=== PATIENT | male | born 1955 | race Caucasian/White ===

== ENCOUNTER 2020-04-12 10:30 | Outpatient (RCR) | payer MEDICARE, OTHER, SELFPAY ==
--- NOTE | 2020-01-23 12:00 | PT.OIE ---
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 (Acute) Hypercholesteremia (Acute) Hypothyroid (Acute) Tinnitus of both ears (Acute) Visit Care Team Role Provider Type John Fortune DO Primary Care Provider Non-Staff Specialty: Family Practice Address: [address] [place] [address], [id number] Email: Ramin Bhatt MD Attending Provider Physician Referring Provider Specialty: Ear, Nose, Throat Address: [address] [place] [address], [id number] Email: [email or web address] Physical Therapy Initial Evaluation PT-OP-A Visit Information Start: 01/24/20 08:44 Freq: Status: Active Protocol: Document 01/23/20 12:00 DLM (Rec: 01/24/20 08:52 DLM [email or web address]) Out-Patient Physical Therapy Visit Information Visit Information Visit Type Initial Evaluation Visit Start Time 12:00 Visit Stop Time 12:50 Total Visit Minutes 50 Visit Number 1 Evaluation Information Evaluation Date 01/24/20 PT-OP-B Current Condition Start: 01/24/20 08:44 Freq: Status: Active Protocol: Document 01/23/20 12:00 DLM (Rec: 01/24/20 09:19 DLM [email or web address]) Current Condition History of Current Condition Onset Date 5 years ago Current Complaints nausea, sense of motion sickness with positions and movements History of Current Condition Sudden development of nausea with specific motions such as looking up under a sink. He has been avoiding motions and positions that cause his symptoms. He sleeps on two pillows to keep head elevated. He has noticed a recent increase in his symptoms without known cause. If he does a very provoking activity his nausea can last the rest of the day. Less provoking motions will cause short term nausea. Other provoking positions/motions are; sleeping flat, head down when in quadruped, sudden head motions. Prior Treatments and Tests ENT assessment which was negative for BPPV, referred to physical therapy for habituation Treatment Goals Patient/Caregiver Goals He wants to be able to do rolls in his kayak, to remove limits to my activities Prior Functional Status Baseline Function- ADL's Independent Baseline Function- Mobility Independent Baseline Function- Gait Independent without device Baseline Function- Recreation/Hobbies active hiking and kayaking Baseline Function- Other hearing aides Current Functional Impairments (Reported) Functional Limitations- ADL's avoids looking under sink/bed, sleeps with head elevated Functional Limitations- Mobility/Gait Independent gait without assistive device, no change in his balance Functional Limitations- Recreation/ avoiding learning kayak rolls Hobbies due to his symptoms Functional Limitations- Other high frequency hearing loss, tinnitus bilateral ears, sometimes food sticks in esophagus, headaches when his symptoms are provoked Personal Factors Other Personal Factors That May Effect pt is very active, prior Therapy/Recovery injury to left achilles with ongoing soreness PT-OP-C Subjective Start: 01/24/20 08:44 Freq: Status: Active Protocol: Document 01/23/20 12:00 DLM (Rec: 01/26/20 12:44 DLM [email or web address]) Patient Questionnaires Dizziness Handicap Inventory DHI Score 24 DHI Functional Impairment 20 to 39% Impaired (Score 20- 39) PT-OP-D Balance Start: 01/24/20 08:44 Freq: Status: Active Protocol: Document 01/23/20 12:00 DLM (Rec: 01/26/20 12:47 DLM [email or web address]) Balance Tests CTSIB CTSIB Position 1 > 30 sec CTSIB Position 2 >30 sec CTSIB Position 3 >30 sec CTSIB Position 4 >30 sec CTSIB Position 5 >30 sec CTSIB Position 6 >30 sec Romberg Romberg independent with EO and EC Single Limb Standing Single Limb- Right > 10 sec Single Limb- Left >10 sec Tandem Tandem Standing independent > 30 sec PT-OP-H Neuro Start: 01/24/20 08:44 Freq: Status: Active Protocol: Document 01/23/20 12:00 DLM (Rec: 01/26/20 13:05 DLM [email or web address]) Sensation Evaluation Gross Sensation Gross Sensation Right LE Impaired Sensation Description Numbness Comments Summary Comments pt reports numbness in plantar right forefoot associated with neuropathy Coordination Evaluation Comments Coordination Comments UE and LE Coordination is WNL PT-OP-K Range of Motion Start: 01/24/20 08:44 Freq: Status: Active Protocol: Document 01/23/20 12:00 DLM (Rec: 01/26/20 12:48 DLM [email or web address]) Cervical Spine Range of Motion Cervical Spine Active Percentage Testing Position Sitting Flexion 95 Extension 50 Rotation Left 50 Rotation Right 75 Lateral Flexion Left 25 Lateral Flexion Right 25 ROM Limitations Soft Tissue Tightness PT-OP-M Strength Start: 01/24/20 08:44 Freq: Status: Active Protocol: Document 01/23/20 12:00 DLM (Rec: 01/26/20 12:50 DLM [email or web address]) Hip Strength Hip Manual Muscle Testing Right Flexion (L2) 5 Normal Extension (S1) 5 Normal Abduction 5 Normal Adduction 5 Normal Left Flexion (L2) 5 Normal Extension (S1) 5 Normal Abduction 5 Normal Adduction 5 Normal Knee Strength Knee Manual Muscle Testing Right Flexion (S2) 5 Normal Extension (L3) 5 Normal Left Flexion (S2) 5 Normal Extension (L3) 5 Normal Ankle/Foot Strength Ankle and Foot Manual Muscle Testing Right Dorsiflexion (L4) 5 Normal Plantarflexion (S1) 5 Normal Inversion 5 Normal Eversion (S1) 5 Normal Left Dorsiflexion (L4) 5 Normal Plantarflexion (S1) 4 Good Inversion 5 Normal Eversion (S1) 4 Good PT-OP-O Vestibular Start: 01/24/20 08:44 Freq: Status: Active Protocol: Document 01/23/20 12:00 DLM (Rec: 01/26/20 13:03 DLM [email or web address]) Vestibular Assessment Screening Tests Vestibular Artery Screen Negative Positional Testing Rolling Test Negative Left,Negative Right Sidelying Test Negative Left,Negative Right Supine to Sit Negative Sit to Supine Negative Vestibular Function Tests Fukuda Test negative Comments Vestibular Comments Nausea with movements but no nystagmus nor dizziness. Symptoms less severe with eyes open than eyes closed. Provoking Motions: 1)Sit to/from right sidelying, constant nausea in sidelying, resolves in sitting. 2)Sit to/from left sidelying, constant nausea in sidelying, resolves in sitting. 3)Rolling- mild nause bilaterally w/left worse than right. 4) Seated bend over and up- mild nausea that resolves with bent over and reoccurs with up motion. 5) Seated cervical extension causes nausea that resolves when in neutral 6) Seated cervical flexion causes nausea that is worse than extension PT-OP-Q Treatments Start: 01/24/20 08:44 Freq: Status: Active Protocol: Document 01/23/20 12:00 DLM (Rec: 01/24/20 09:00 DLM [email or web address]) Neuro Re-Education Treatment Other Activities 2 Details Rolling to each side in bed with pillow Reps/Duration 3 reps each side Comments habituation exercise 1 Details Cervical AROM seated Reps/Duration 3 reps each motion Comments habituation exercise Self-Care/Home Management Treatment Education Patient Education Home Exercise Program Other Education pt to do 2 above activities as HEP, he is to monitor his symptoms during activity, complete 2-3 times per day PT-OP-T Assessment and Plan Start: 01/24/20 08:44 Freq: Status: Active Protocol: Document 01/23/20 12:00 DLM (Rec: 01/26/20 13:17 DLM [email or web address]) Physical Therapy Assessment Rehab Potential Rehabilitation Potential Good Evaluation Complexity Number of Personal Factors/Comorbidities 1-2 Number of Body Systems Impaired 1-2 Clinical Presentation at Evaluation Evolving Impairments Impairments Activity Tolerance,ROM, Vestibular Other Impairments Nausea provoked by motions and positions Other Concerns Age Related Concerns hard of hearing Goals Two Impairment Nausea with head motions Short Term Goal (STG) Cervical soft tissue tightness with not limit normal head motions STG Duration 4 weeks Prison Goal (LTG) Resolve nause with normal head motions LTG Duration 6 weeks One Impairment Nausea with positional changes Short Term Goal (STG) Resolve nause with all bed mobility STG Duration 4 weeks Mink Slicer Goal (LTG) Resolve nause with all functional movements including looking under a sink LTG Duration 6 weeks Assessment Summary Assessment Dorene presents with nausea with positional changes and head motions. He has no dizziness nor nystagmus that is provoked. He reports his symptoms are getting worse over time and he is avoiding positions and motions to manage his symptoms. He is very active at baseline. During the clinical exam his symptoms suggest an uncompensated vestibular hypofunction that may be complicated by cervical soft tissue tightness. He appears to be a good candidate for vestibular rehab for habituation exercises and for PT to address his limited cervical ROM. Physical Therapy Plan Frequency and Duration Frequency of Treatment 2x/Week Duration of Treatment 6 weeks Plan of Care Start Date 01/23/20 Plan of Care End Date 03/05/20 Therapeutic Interventions Therapeutic Interventions Home Exercise Program,Manual Therapy,Self-Care/Home Management,Soft Tissue Mobilization,Therapeutic Activities,Therapeutic Exercises,Vestibular Rehabilitation Modalities Hot Packs Next Visit Focus/Plan Next Note Type Treatment Note Next Visit Plan continue to assess cervical limitations and its influence on his symptoms, advance habituation exercises as tolerated
--- NOTE | 2020-01-23 12:00 | PT.OPPOC ---
Physical, Occupational & Speech Therapy At [facility] Current Diagnoses Tinnitus, bilateral (01/25/20) Nausea (01/25/20) Dizziness and giddiness (01/25/20) Motion sickness, initial encounter (01/25/20) Visit Care Team Role Provider Type John Fortune DO Primary Care Provider Non-Staff Specialty: Family Practice Address: [address] [place], [address] Email: Ramin Bhatt MD Attending Provider Physician Referring Provider Specialty: Ear, Nose, Throat Address: [address] [place] [address], [id number] Email: [email or web address] Plan Of Care PT-OP-T Assessment and Plan Start: 01/24/20 08:44 Freq: Status: Active Protocol: Document 01/23/20 12:00 DLM (Rec: 01/26/20 13:17 DLM [email or web address]) Physical Therapy Assessment Rehab Potential Rehabilitation Potential Good Evaluation Complexity Number of Personal Factors/Comorbidities 1-2 Number of Body Systems Impaired 1-2 Clinical Presentation at Evaluation Evolving Impairments Impairments Activity Tolerance,ROM, Vestibular Other Impairments Nausea provoked by motions and positions Other Concerns Age Related Concerns hard of hearing Goals Two Impairment Nausea with head motions Short Term Goal (STG) Cervical soft tissue tightness with not limit normal head motions STG Duration 4 weeks Jail Goal (LTG) Resolve nause with normal head motions LTG Duration 6 weeks One Impairment Nausea with positional changes Short Term Goal (STG) Resolve nause with all bed mobility STG Duration 4 weeks Jail Goal (LTG) Resolve nause with all functional movements including looking under a sink LTG Duration 6 weeks Assessment Summary Assessment Dorene presents with nausea with positional changes and head motions. He has no dizziness nor nystagmus that is provoked. He reports his symptoms are getting worse over time and he is avoiding positions and motions to manage his symptoms. He is very active at baseline. During the clinical exam his symptoms suggest an uncompensated vestibular hypofunction that may be complicated by cervical soft tissue tightness. He appears to be a good candidate for vestibular rehab for habituation exercises and for PT to address his limited cervical ROM. Physical Therapy Plan Frequency and Duration Frequency of Treatment 2x/Week Duration of Treatment 6 weeks Plan of Care Start Date 01/23/20 Plan of Care End Date 03/05/20 Therapeutic Interventions Therapeutic Interventions Home Exercise Program,Manual Therapy,Self-Care/Home Management,Soft Tissue Mobilization,Therapeutic Activities,Therapeutic Exercises,Vestibular Rehabilitation Modalities Hot Packs Next Visit Focus/Plan Next Note Type Treatment Note Next Visit Plan continue to assess cervical limitations and its influence on his symptoms, advance habituation exercises as tolerated Plan of Care Dates Plan of Care Start Date 01/23/20 Plan of Care End Date 03/05/20 Electronically Signed by: Devorah Varghese, PT 01/26/20 [id number] Please Sign and Return: I have reviewed this Plan of Care and certify that the skilled therapy services above are required to meet the patient?s needs. Physician Signature Date Printed Name and Credentials
--- NOTE | 2020-01-25 15:15 | PT.OTN ---
Current Diagnoses Tinnitus, bilateral (01/25/20) Nausea (01/25/20) Dizziness and giddiness (01/25/20) Motion sickness, initial encounter (01/25/20) Physical Therapy Treatment Note PT-OP-A Visit Information Start: 01/24/20 08:44 Freq: Status: Active Protocol: Document 01/25/20 15:15 DLM (Rec: 01/26/20 13:26 DLM [email or web address]) Out-Patient Physical Therapy Visit Information Visit Information Visit Type Treatment Note Visit Start Time 15:15 Visit Stop Time 15:59 Total Visit Minutes 44 Visit Number 2/ Number of DIE CAST SUPERVISOR Visits 0 Evaluation Information Evaluation Date 01/23/20 Precautions Precautions left achilles soreness PT-OP-B Current Condition Start: 01/24/20 08:44 Freq: Status: Active Protocol: Document 01/23/20 12:00 DLM (Rec: 01/24/20 09:19 DLM [email or web address]) Current Condition History of Current Condition Onset Date 5 years ago Current Complaints nausea, sense of motion sickness with positions and movements History of Current Condition Sudden development of nausea with specific motions such as looking up under a sink. He has been avoiding motions and positions that cause his symptoms. He sleeps on two pillows to keep head elevated. He has noticed a recent increase in his symptoms without known cause. If he does a very provoking activity his nausea can last the rest of the day. Less provoking motions will cause short term nausea. Other provoking positions/motions are; sleeping flat, head down when in quadruped, sudden head motions. Prior Treatments and Tests ENT assessment which was negative for BPPV, referred to physical therapy for habituation Treatment Goals Patient/Caregiver Goals He wants to be able to do rolls in his kayak, to remove limits to my activities Prior Functional Status Baseline Function- ADL's Independent Baseline Function- Mobility Independent Baseline Function- Gait Independent without device Baseline Function- Recreation/Hobbies active hiking and kayaking Baseline Function- Other hearing aides Current Functional Impairments (Reported) Functional Limitations- ADL's avoids looking under sink/bed, sleeps with head elevated Functional Limitations- Mobility/Gait Independent gait without assistive device, no change in his balance Functional Limitations- Recreation/ avoiding learning kayak rolls Hobbies due to his symptoms Functional Limitations- Other high frequency hearing loss, tinnitus bilateral ears, sometimes food sticks in esophagus, headaches when his symptoms are provoked Personal Factors Other Personal Factors That May Effect pt is very active, prior Therapy/Recovery injury to left achilles with ongoing soreness PT-OP-C Subjective Start: 01/24/20 08:44 Freq: Status: Active Protocol: Document 01/25/20 15:15 DLM (Rec: 01/26/20 13:35 DLM [email or web address]) OP-PT Subjective Patient Comments Patient Comments He has been doing his exerices at home and feeling a little better. He tolerated the evaluation without all day nausea after. Patient Reported Progress Improving PT-OP-D Balance Start: 01/24/20 08:44 Freq: Status: Active Protocol: Document 01/23/20 12:00 DLM (Rec: 01/26/20 12:47 DLM [email or web address]) Balance Tests CTSIB CTSIB Position 1 > 30 sec CTSIB Position 2 >30 sec CTSIB Position 3 >30 sec CTSIB Position 4 >30 sec CTSIB Position 5 >30 sec CTSIB Position 6 >30 sec Romberg Romberg independent with EO and EC Single Limb Standing Single Limb- Right > 10 sec Single Limb- Left >10 sec Tandem Tandem Standing independent > 30 sec PT-OP-H Neuro Start: 01/24/20 08:44 Freq: Status: Active Protocol: Document 01/23/20 12:00 DLM (Rec: 01/26/20 13:05 DLM [email or web address]) Sensation Evaluation Gross Sensation Gross Sensation Right LE Impaired Sensation Description Numbness Comments Summary Comments pt reports numbness in plantar right forefoot associated with neuropathy Coordination Evaluation Comments Coordination Comments UE and LE Coordination is WNL PT-OP-K Range of Motion Start: 01/24/20 08:44 Freq: Status: Active Protocol: Document 01/23/20 12:00 DLM (Rec: 01/26/20 12:48 DLM [email or web address]) Cervical Spine Range of Motion Cervical Spine Active Percentage Testing Position Sitting Flexion 95 Extension 50 Rotation Left 50 Rotation Right 75 Lateral Flexion Left 25 Lateral Flexion Right 25 ROM Limitations Soft Tissue Tightness PT-OP-M Strength Start: 01/24/20 08:44 Freq: Status: Active Protocol: Document 01/23/20 12:00 DLM (Rec: 01/26/20 12:50 DLM [email or web address]) Hip Strength Hip Manual Muscle Testing Right Flexion (L2) 5 Normal Extension (S1) 5 Normal Abduction 5 Normal Adduction 5 Normal Left Flexion (L2) 5 Normal Extension (S1) 5 Normal Abduction 5 Normal Adduction 5 Normal Knee Strength Knee Manual Muscle Testing Right Flexion (S2) 5 Normal Extension (L3) 5 Normal Left Flexion (S2) 5 Normal Extension (L3) 5 Normal Ankle/Foot Strength Ankle and Foot Manual Muscle Testing Right Dorsiflexion (L4) 5 Normal Plantarflexion (S1) 5 Normal Inversion 5 Normal Eversion (S1) 5 Normal Left Dorsiflexion (L4) 5 Normal Plantarflexion (S1) 4 Good Inversion 5 Normal Eversion (S1) 4 Good PT-OP-O Vestibular Start: 01/24/20 08:44 Freq: Status: Active Protocol: Document 01/23/20 12:00 DLM (Rec: 01/26/20 13:03 DLM [email or web address]) Vestibular Assessment Screening Tests Vestibular Artery Screen Negative Positional Testing Rolling Test Negative Left,Negative Right Sidelying Test Negative Left,Negative Right Supine to Sit Negative Sit to Supine Negative Vestibular Function Tests Fukuda Test negative Comments Vestibular Comments Nausea with movements but no nystagmus nor dizziness. Symptoms less severe with eyes open than eyes closed. Provoking Motions: 1)Sit to/from right sidelying, constant nausea in sidelying, resolves in sitting. 2)Sit to/from left sidelying, constant nausea in sidelying, resolves in sitting. 3)Rolling- mild nause bilaterally w/left worse than right. 4) Seated bend over and up- mild nausea that resolves with bent over and reoccurs with up motion. 5) Seated cervical extension causes nausea that resolves when in neutral 6) Seated cervical flexion causes nausea that is worse than extension PT-OP-Q Treatments Start: 01/24/20 08:44 Freq: Status: Active Protocol: Document 01/25/20 15:15 DLM (Rec: 01/26/20 13:35 DLM [email or web address]) Neuro Re-Education Treatment Other Activities 5 Details standing narrow EDGARDO with head motions Reps/Duration 2 sets of 3 each direction Comments habituation, EO 4 Details Lying flat in supine Reps/Duration eyes open Comments started with one pillow and progressed to no pillow, incorporated suboccipital release to assist with neutral head position 3 Details Cervical Extension seated Reps/Duration 3 reps Comments habituation exercises, EO 2 Details Rolling to each side in bed with pillow Reps/Duration 3 reps each side Comments habituation exercise, EO 1 Details Cervical AROM seated Reps/Duration 3 reps each motion Comments habituation exercise, EO Self-Care/Home Management Treatment Education Patient Education Home Exercise Program Other Education reviewed HEP and added cervical extension seated to home exercises PT-OP-T Assessment and Plan Start: 01/24/20 08:44 Freq: Status: Active Protocol: Document 01/25/20 15:15 DLM (Rec: 01/26/20 13:35 DLM [email or web address]) Physical Therapy Assessment Goals Two Impairment Nausea with head motions Short Term Goal (STG) Cervical soft tissue tightness with not limit normal head motions STG Duration 4 weeks Veneer Stock Layer Goal (LTG) Resolve nause with normal head motions LTG Duration 6 weeks One Impairment Nausea with positional changes Short Term Goal (STG) Resolve nause with all bed mobility STG Duration 4 weeks Veneer Stock Layer Goal (LTG) Resolve nause with all functional movements including looking under a sink LTG Duration 6 weeks Progress Towards Goals Progress Towards Goals Progressing Toward Goals Assessment Summary Assessment He tolerated treatment well. Mild improvement in his symptoms compared to eval. Pt thinks his cervical stiffness may be related to him sleeping with head elevated avoiding the nause with lying flat. Physical Therapy Plan Frequency and Duration Frequency of Treatment 2x/Week Duration of Treatment 6 weeks Plan of Care Start Date 01/23/20 Plan of Care End Date 03/05/20 Therapeutic Interventions Therapeutic Interventions Home Exercise Program,Manual Therapy,Self-Care/Home Management,Soft Tissue Mobilization,Therapeutic Activities,Therapeutic Exercises,Vestibular Rehabilitation Modalities Hot Packs Next Visit Focus/Plan Next Note Type Treatment Note Next Visit Plan slow advance habituation exercises, continue to address cervical stiffness
--- NOTE | 2020-01-29 12:01 | PT.OTN ---
Current Diagnoses Tinnitus, bilateral (01/29/20) Nausea (01/29/20) Dizziness and giddiness (01/29/20) Motion sickness, initial encounter (01/29/20) Physical Therapy Treatment Note PT-OP-A Visit Information Start: 01/24/20 08:44 Freq: Status: Active Protocol: Document 01/29/20 11:15 DCW (Rec: 01/29/20 12:01 DCW [id number]) Out-Patient Physical Therapy Visit Information Visit Information Visit Type Treatment Note Visit Start Time 11:15 Visit Stop Time 12:00 Total Visit Minutes 45 Visit Number 3/10 Number of LOOM CHANGER Visits 0 Evaluation Information Evaluation Date 01/23/20 PT-OP-B Current Condition Start: 01/24/20 08:44 Freq: Status: Active Protocol: Document 01/23/20 12:00 DLM (Rec: 01/24/20 09:19 DLM [email or web address]) Current Condition History of Current Condition Onset Date 5 years ago Current Complaints nausea, sense of motion sickness with positions and movements History of Current Condition Sudden development of nausea with specific motions such as looking up under a sink. He has been avoiding motions and positions that cause his symptoms. He sleeps on two pillows to keep head elevated. He has noticed a recent increase in his symptoms without known cause. If he does a very provoking activity his nausea can last the rest of the day. Less provoking motions will cause short term nausea. Other provoking positions/motions are; sleeping flat, head down when in quadruped, sudden head motions. Prior Treatments and Tests ENT assessment which was negative for BPPV, referred to physical therapy for habituation Treatment Goals Patient/Caregiver Goals He wants to be able to do rolls in his kayak, to remove limits to my activities Prior Functional Status Baseline Function- ADL's Independent Baseline Function- Mobility Independent Baseline Function- Gait Independent without device Baseline Function- Recreation/Hobbies active hiking and kayaking Baseline Function- Other hearing aides Current Functional Impairments (Reported) Functional Limitations- ADL's avoids looking under sink/bed, sleeps with head elevated Functional Limitations- Mobility/Gait Independent gait without assistive device, no change in his balance Functional Limitations- Recreation/ avoiding learning kayak rolls Hobbies due to his symptoms Functional Limitations- Other high frequency hearing loss, tinnitus bilateral ears, sometimes food sticks in esophagus, headaches when his symptoms are provoked Personal Factors Other Personal Factors That May Effect pt is very active, prior Therapy/Recovery injury to left achilles with ongoing soreness PT-OP-C Subjective Start: 01/24/20 08:44 Freq: Status: Active Protocol: Document 01/29/20 11:15 DCW (Rec: 01/29/20 12:01 DCW [id number]) OP-PT Subjective Patient Comments Patient Comments I don't have a problem with 90% of activities, but if I get my head upside-down like I 'm looking under something, I just feel really nauseated. As I do these exercises at home, it does seem like my symptoms are diminishing. PT-OP-D Balance Start: 01/24/20 08:44 Freq: Status: Active Protocol: Document 01/23/20 12:00 DLM (Rec: 01/26/20 12:47 DLM [email or web address]) Balance Tests CTSIB CTSIB Position 1 > 30 sec CTSIB Position 2 >30 sec CTSIB Position 3 >30 sec CTSIB Position 4 >30 sec CTSIB Position 5 >30 sec CTSIB Position 6 >30 sec Romberg Romberg independent with EO and EC Single Limb Standing Single Limb- Right > 10 sec Single Limb- Left >10 sec Tandem Tandem Standing independent > 30 sec PT-OP-H Neuro Start: 01/24/20 08:44 Freq: Status: Active Protocol: Document 01/23/20 12:00 DLM (Rec: 01/26/20 13:05 DLM [email or web address]) Sensation Evaluation Gross Sensation Gross Sensation Right LE Impaired Sensation Description Numbness Comments Summary Comments pt reports numbness in plantar right forefoot associated with neuropathy Coordination Evaluation Comments Coordination Comments UE and LE Coordination is WNL PT-OP-K Range of Motion Start: 01/24/20 08:44 Freq: Status: Active Protocol: Document 01/23/20 12:00 DLM (Rec: 01/26/20 12:48 DLM [email or web address]) Cervical Spine Range of Motion Cervical Spine Active Percentage Testing Position Sitting Flexion 95 Extension 50 Rotation Left 50 Rotation Right 75 Lateral Flexion Left 25 Lateral Flexion Right 25 ROM Limitations Soft Tissue Tightness PT-OP-M Strength Start: 01/24/20 08:44 Freq: Status: Active Protocol: Document 01/23/20 12:00 DLM (Rec: 01/26/20 12:50 DLM [email or web address]) Hip Strength Hip Manual Muscle Testing Right Flexion (L2) 5 Normal Extension (S1) 5 Normal Abduction 5 Normal Adduction 5 Normal Left Flexion (L2) 5 Normal Extension (S1) 5 Normal Abduction 5 Normal Adduction 5 Normal Knee Strength Knee Manual Muscle Testing Right Flexion (S2) 5 Normal Extension (L3) 5 Normal Left Flexion (S2) 5 Normal Extension (L3) 5 Normal Ankle/Foot Strength Ankle and Foot Manual Muscle Testing Right Dorsiflexion (L4) 5 Normal Plantarflexion (S1) 5 Normal Inversion 5 Normal Eversion (S1) 5 Normal Left Dorsiflexion (L4) 5 Normal Plantarflexion (S1) 4 Good Inversion 5 Normal Eversion (S1) 4 Good PT-OP-O Vestibular Start: 01/24/20 08:44 Freq: Status: Active Protocol: Document 01/23/20 12:00 DLM (Rec: 01/26/20 13:03 DLM [email or web address]) Vestibular Assessment Screening Tests Vestibular Artery Screen Negative Positional Testing Rolling Test Negative Left,Negative Right Sidelying Test Negative Left,Negative Right Supine to Sit Negative Sit to Supine Negative Vestibular Function Tests Fukuda Test negative Comments Vestibular Comments Nausea with movements but no nystagmus nor dizziness. Symptoms less severe with eyes open than eyes closed. Provoking Motions: 1)Sit to/from right sidelying, constant nausea in sidelying, resolves in sitting. 2)Sit to/from left sidelying, constant nausea in sidelying, resolves in sitting. 3)Rolling- mild nause bilaterally w/left worse than right. 4) Seated bend over and up- mild nausea that resolves with bent over and reoccurs with up motion. 5) Seated cervical extension causes nausea that resolves when in neutral 6) Seated cervical flexion causes nausea that is worse than extension PT-OP-Q Treatments Start: 01/24/20 08:44 Freq: Status: Active Protocol: Document 01/29/20 11:15 DCW (Rec: 01/29/20 12:01 DCW [id number]) Manual Therapy Treatment Soft Tissue Mobilization 1 Body Location Cervical paraspinals Mobilization Type Strumming,Sustained Pressure Neuro Re-Education Treatment Vestibular Rehabilitation Corrective Saccades Details Eyes, then head to target Distance From Target Arms length Speed as tolerated Position seated X2 Viewing Details Head/target in opposite directions Distance From Target Arms length Speed as tolerated Position seated X1 Viewing Details Head turns with static target Distance From Target Arms length Speed as tolerated Position seated VOR Retraining Details Target and head move together Distance From Target Arms length Speed as tolerated Position seated Other Activities 7 Details Ambulation with head turns 6 Details 3-steps, bow, head turns PT-OP-T Assessment and Plan Start: 01/24/20 08:44 Freq: Status: Active Protocol: Document 01/29/20 11:15 DCW (Rec: 01/29/20 12:01 DCW [id number]) Physical Therapy Assessment Impairments Impairments Activity Tolerance,ROM, Vestibular Other Impairments Nausea provoked by motions and positions Goals Two Impairment Nausea with head motions Short Term Goal (STG) Cervical soft tissue tightness with not limit normal head motions STG Duration 4 weeks Spring Fitter Goal (LTG) Resolve nause with normal head motions LTG Duration 6 weeks One Impairment Nausea with positional changes Short Term Goal (STG) Resolve nause with all bed mobility STG Duration 4 weeks Spring Fitter Goal (LTG) Resolve nause with all functional movements including looking under a sink LTG Duration 6 weeks Assessment Summary Assessment Pt mildly symptomatic with VOR , X1, X2 exercises, but felt they were helpful. Overall seeing improvement with frequency and severity of symptoms since evaluation last week. Physical Therapy Plan Frequency and Duration Frequency of Treatment 2x/Week Duration of Treatment 6 weeks Plan of Care Start Date 01/23/20 Plan of Care End Date 03/05/20 Therapeutic Interventions Therapeutic Interventions Home Exercise Program,Manual Therapy,Self-Care/Home Management,Soft Tissue Mobilization,Therapeutic Activities,Therapeutic Exercises,Vestibular Rehabilitation Modalities Hot Packs Next Visit Focus/Plan Next Note Type Treatment Note Next Visit Plan slow advance habituation exercises, continue to address cervical stiffness
--- NOTE | 2020-02-12 10:31 | PT.OTN ---
Current Diagnoses Tinnitus, bilateral (02/12/20) Nausea (02/12/20) Dizziness and giddiness (02/12/20) Motion sickness, initial encounter (02/12/20) Physical Therapy Treatment Note PT-OP-A Visit Information Start: 01/24/20 08:44 Freq: Status: Active Protocol: Document 02/12/20 10:01 AMB (Rec: 02/12/20 10:10 AMB [id number]) Out-Patient Physical Therapy Visit Information Visit Information Visit Type Treatment Note Visit Start Time 09:05 Visit Stop Time 09:45 Total Visit Minutes 40 Visit Number 4/10 Number of SEAPORT PLANNING MANAGER Visits 0 PT-OP-B Current Condition Start: 01/24/20 08:44 Freq: Status: Active Protocol: Document 01/23/20 12:00 DLM (Rec: 01/24/20 09:19 DLM [email or web address]) Current Condition History of Current Condition Onset Date 5 years ago Current Complaints nausea, sense of motion sickness with positions and movements History of Current Condition Sudden development of nausea with specific motions such as looking up under a sink. He has been avoiding motions and positions that cause his symptoms. He sleeps on two pillows to keep head elevated. He has noticed a recent increase in his symptoms without known cause. If he does a very provoking activity his nausea can last the rest of the day. Less provoking motions will cause short term nausea. Other provoking positions/motions are; sleeping flat, head down when in quadruped, sudden head motions. Prior Treatments and Tests ENT assessment which was negative for BPPV, referred to physical therapy for habituation Treatment Goals Patient/Caregiver Goals He wants to be able to do rolls in his kayak, to remove limits to my activities Prior Functional Status Baseline Function- ADL's Independent Baseline Function- Mobility Independent Baseline Function- Gait Independent without device Baseline Function- Recreation/Hobbies active hiking and kayaking Baseline Function- Other hearing aides Current Functional Impairments (Reported) Functional Limitations- ADL's avoids looking under sink/bed, sleeps with head elevated Functional Limitations- Mobility/Gait Independent gait without assistive device, no change in his balance Functional Limitations- Recreation/ avoiding learning kayak rolls Hobbies due to his symptoms Functional Limitations- Other high frequency hearing loss, tinnitus bilateral ears, sometimes food sticks in esophagus, headaches when his symptoms are provoked Personal Factors Other Personal Factors That May Effect pt is very active, prior Therapy/Recovery injury to left achilles with ongoing soreness PT-OP-C Subjective Start: 01/24/20 08:44 Freq: Status: Active Protocol: Document 02/12/20 10:01 AMB (Rec: 02/12/20 10:10 AMB [id number]) OP-PT Subjective Patient Comments Patient Comments Exercises are getting easier, they would cause 3/10 nausea originally, but now about 1/10 nausea. Bending over and looking up would still cause a lot of nausea. PT-OP-D Balance Start: 01/24/20 08:44 Freq: Status: Active Protocol: Document 01/23/20 12:00 DLM (Rec: 01/26/20 12:47 DLM [email or web address]) Balance Tests CTSIB CTSIB Position 1 > 30 sec CTSIB Position 2 >30 sec CTSIB Position 3 >30 sec CTSIB Position 4 >30 sec CTSIB Position 5 >30 sec CTSIB Position 6 >30 sec Romberg Romberg independent with EO and EC Single Limb Standing Single Limb- Right > 10 sec Single Limb- Left >10 sec Tandem Tandem Standing independent > 30 sec PT-OP-H Neuro Start: 01/24/20 08:44 Freq: Status: Active Protocol: Document 01/23/20 12:00 DLM (Rec: 01/26/20 13:05 DLM [email or web address]) Sensation Evaluation Gross Sensation Gross Sensation Right LE Impaired Sensation Description Numbness Comments Summary Comments pt reports numbness in plantar right forefoot associated with neuropathy Coordination Evaluation Comments Coordination Comments UE and LE Coordination is WNL PT-OP-K Range of Motion Start: 01/24/20 08:44 Freq: Status: Active Protocol: Document 01/23/20 12:00 DLM (Rec: 01/26/20 12:48 DLM [email or web address]) Cervical Spine Range of Motion Cervical Spine Active Percentage Testing Position Sitting Flexion 95 Extension 50 Rotation Left 50 Rotation Right 75 Lateral Flexion Left 25 Lateral Flexion Right 25 ROM Limitations Soft Tissue Tightness PT-OP-M Strength Start: 01/24/20 08:44 Freq: Status: Active Protocol: Document 01/23/20 12:00 DLM (Rec: 01/26/20 12:50 DLM [email or web address]) Hip Strength Hip Manual Muscle Testing Right Flexion (L2) 5 Normal Extension (S1) 5 Normal Abduction 5 Normal Adduction 5 Normal Left Flexion (L2) 5 Normal Extension (S1) 5 Normal Abduction 5 Normal Adduction 5 Normal Knee Strength Knee Manual Muscle Testing Right Flexion (S2) 5 Normal Extension (L3) 5 Normal Left Flexion (S2) 5 Normal Extension (L3) 5 Normal Ankle/Foot Strength Ankle and Foot Manual Muscle Testing Right Dorsiflexion (L4) 5 Normal Plantarflexion (S1) 5 Normal Inversion 5 Normal Eversion (S1) 5 Normal Left Dorsiflexion (L4) 5 Normal Plantarflexion (S1) 4 Good Inversion 5 Normal Eversion (S1) 4 Good PT-OP-O Vestibular Start: 01/24/20 08:44 Freq: Status: Active Protocol: Document 01/23/20 12:00 DLM (Rec: 01/26/20 13:03 DLM [email or web address]) Vestibular Assessment Screening Tests Vestibular Artery Screen Negative Positional Testing Rolling Test Negative Left,Negative Right Sidelying Test Negative Left,Negative Right Supine to Sit Negative Sit to Supine Negative Vestibular Function Tests Fukuda Test negative Comments Vestibular Comments Nausea with movements but no nystagmus nor dizziness. Symptoms less severe with eyes open than eyes closed. Provoking Motions: 1)Sit to/from right sidelying, constant nausea in sidelying, resolves in sitting. 2)Sit to/from left sidelying, constant nausea in sidelying, resolves in sitting. 3)Rolling- mild nause bilaterally w/left worse than right. 4) Seated bend over and up- mild nausea that resolves with bent over and reoccurs with up motion. 5) Seated cervical extension causes nausea that resolves when in neutral 6) Seated cervical flexion causes nausea that is worse than extension PT-OP-Q Treatments Start: 01/24/20 08:44 Freq: Status: Active Protocol: Document 02/12/20 09:00 AMB (Rec: 02/12/20 10:31 AMB [email or web address]) Manual Therapy Treatment Soft Tissue Mobilization 1 Body Location Cervical paraspinals Mobilization Type Strumming,Sustained Pressure Manual Traction Cervical Body Position Hooklying Neuro Re-Education Treatment Other Activities 8 Details 3 step and SLS with HT Comments challenging for balance 7 Details Ambulation with head turns Comments added diagonal head turns 6 Details 3-steps, bow, head turns Comments added diagonal PT-OP-T Assessment and Plan Start: 01/24/20 08:44 Freq: Status: Active Protocol: Document 02/12/20 09:00 AMB (Rec: 02/12/20 10:31 AMB [email or web address]) Physical Therapy Assessment Assessment Summary Assessment Mino was more challenged when he took his natural long stride lengths with his exercises. Encouraged to modify step length/ speed of head turn so that he can be challenged by exercises but not fall. Pt asked if he should continue all of previously assigned HEP and told him to continue with those items that he continues to find challenging/reproduce his sx. Physical Therapy Plan Next Visit Focus/Plan Next Note Type Treatment Note Next Visit Plan slow advance habituation exercises, continue to address cervical stiffness
--- NOTE | 2020-02-14 12:00 | PT.OTN ---
Current Diagnoses Tinnitus, bilateral (02/14/20) Nausea (02/14/20) Dizziness and giddiness (02/14/20) Motion sickness, initial encounter (02/14/20) Physical Therapy Treatment Note PT-OP-A Visit Information Start: 01/24/20 08:44 Freq: Status: Active Protocol: Document 02/14/20 09:45 AMB (Rec: 02/14/20 10:57 AMB [id number]) Out-Patient Physical Therapy Visit Information Visit Information Visit Type Treatment Note Visit Start Time 09:00 Visit Stop Time 09:40 Total Visit Minutes 40 Visit Number 5/ Number of SOCIAL WORK FACULTY MEMBER Visits 0 PT-OP-B Current Condition Start: 01/24/20 08:44 Freq: Status: Active Protocol: Document 01/23/20 12:00 DLM (Rec: 01/24/20 09:19 DLM [email or web address]) Current Condition History of Current Condition Onset Date 5 years ago Current Complaints nausea, sense of motion sickness with positions and movements History of Current Condition Sudden development of nausea with specific motions such as looking up under a sink. He has been avoiding motions and positions that cause his symptoms. He sleeps on two pillows to keep head elevated. He has noticed a recent increase in his symptoms without known cause. If he does a very provoking activity his nausea can last the rest of the day. Less provoking motions will cause short term nausea. Other provoking positions/motions are; sleeping flat, head down when in quadruped, sudden head motions. Prior Treatments and Tests ENT assessment which was negative for BPPV, referred to physical therapy for habituation Treatment Goals Patient/Caregiver Goals He wants to be able to do rolls in his kayak, to remove limits to my activities Prior Functional Status Baseline Function- ADL's Independent Baseline Function- Mobility Independent Baseline Function- Gait Independent without device Baseline Function- Recreation/Hobbies active hiking and kayaking Baseline Function- Other hearing aides Current Functional Impairments (Reported) Functional Limitations- ADL's avoids looking under sink/bed, sleeps with head elevated Functional Limitations- Mobility/Gait Independent gait without assistive device, no change in his balance Functional Limitations- Recreation/ avoiding learning kayak rolls Hobbies due to his symptoms Functional Limitations- Other high frequency hearing loss, tinnitus bilateral ears, sometimes food sticks in esophagus, headaches when his symptoms are provoked Personal Factors Other Personal Factors That May Effect pt is very active, prior Therapy/Recovery injury to left achilles with ongoing soreness PT-OP-C Subjective Start: 01/24/20 08:44 Freq: Status: Active Protocol: Document 02/14/20 09:45 AMB (Rec: 02/14/20 10:57 AMB [id number]) OP-PT Subjective Patient Comments Patient Comments Feeling pretty good, 3/10 dizziness with exercises at home. PT-OP-D Balance Start: 01/24/20 08:44 Freq: Status: Active Protocol: Document 01/23/20 12:00 DLM (Rec: 01/26/20 12:47 DLM [email or web address]) Balance Tests CTSIB CTSIB Position 1 > 30 sec CTSIB Position 2 >30 sec CTSIB Position 3 >30 sec CTSIB Position 4 >30 sec CTSIB Position 5 >30 sec CTSIB Position 6 >30 sec Romberg Romberg independent with EO and EC Single Limb Standing Single Limb- Right > 10 sec Single Limb- Left >10 sec Tandem Tandem Standing independent > 30 sec PT-OP-H Neuro Start: 01/24/20 08:44 Freq: Status: Active Protocol: Document 01/23/20 12:00 DLM (Rec: 01/26/20 13:05 DLM [email or web address]) Sensation Evaluation Gross Sensation Gross Sensation Right LE Impaired Sensation Description Numbness Comments Summary Comments pt reports numbness in plantar right forefoot associated with neuropathy Coordination Evaluation Comments Coordination Comments UE and LE Coordination is WNL PT-OP-K Range of Motion Start: 01/24/20 08:44 Freq: Status: Active Protocol: Document 01/23/20 12:00 DLM (Rec: 01/26/20 12:48 DLM [email or web address]) Cervical Spine Range of Motion Cervical Spine Active Percentage Testing Position Sitting Flexion 95 Extension 50 Rotation Left 50 Rotation Right 75 Lateral Flexion Left 25 Lateral Flexion Right 25 ROM Limitations Soft Tissue Tightness PT-OP-M Strength Start: 01/24/20 08:44 Freq: Status: Active Protocol: Document 01/23/20 12:00 DLM (Rec: 01/26/20 12:50 DLM [email or web address]) Hip Strength Hip Manual Muscle Testing Right Flexion (L2) 5 Normal Extension (S1) 5 Normal Abduction 5 Normal Adduction 5 Normal Left Flexion (L2) 5 Normal Extension (S1) 5 Normal Abduction 5 Normal Adduction 5 Normal Knee Strength Knee Manual Muscle Testing Right Flexion (S2) 5 Normal Extension (L3) 5 Normal Left Flexion (S2) 5 Normal Extension (L3) 5 Normal Ankle/Foot Strength Ankle and Foot Manual Muscle Testing Right Dorsiflexion (L4) 5 Normal Plantarflexion (S1) 5 Normal Inversion 5 Normal Eversion (S1) 5 Normal Left Dorsiflexion (L4) 5 Normal Plantarflexion (S1) 4 Good Inversion 5 Normal Eversion (S1) 4 Good PT-OP-O Vestibular Start: 01/24/20 08:44 Freq: Status: Active Protocol: Document 01/23/20 12:00 DLM (Rec: 01/26/20 13:03 DLM [email or web address]) Vestibular Assessment Screening Tests Vestibular Artery Screen Negative Positional Testing Rolling Test Negative Left,Negative Right Sidelying Test Negative Left,Negative Right Supine to Sit Negative Sit to Supine Negative Vestibular Function Tests Fukuda Test negative Comments Vestibular Comments Nausea with movements but no nystagmus nor dizziness. Symptoms less severe with eyes open than eyes closed. Provoking Motions: 1)Sit to/from right sidelying, constant nausea in sidelying, resolves in sitting. 2)Sit to/from left sidelying, constant nausea in sidelying, resolves in sitting. 3)Rolling- mild nause bilaterally w/left worse than right. 4) Seated bend over and up- mild nausea that resolves with bent over and reoccurs with up motion. 5) Seated cervical extension causes nausea that resolves when in neutral 6) Seated cervical flexion causes nausea that is worse than extension PT-OP-Q Treatments Start: 01/24/20 08:44 Freq: Status: Active Protocol: Document 02/14/20 09:00 AMB (Rec: 02/14/20 12:48 AMB [email or web address]) Gym Equipment Shuttle Balance 1 Details RED Comments horizontal head turns with WBOS Therapeutic Exercises Other Exercises 2 Other Exercise Name shaun pose Comments increased motion sickness to 5 /10 1 Other Exercise Name thread the needle Comments HEP- increased motion sickness to 3-4/10 Neuro Re-Education Treatment Other Activities 8 Details 3 step and SLS with HT Comments challenging for balance 7 Details Ambulation with head turns Comments added diagonal head turns 6 Details 3-steps, bow, head turns Comments added diagonal PT-OP-T Assessment and Plan Start: 01/24/20 08:44 Freq: Status: Active Protocol: Document 11/11/20 09:45 AMB (Rec: 02/14/20 10:57 AMB [id number]) Physical Therapy Assessment Assessment Summary Assessment Mino tolerated exercises well, but shaun pose and quadruped with neck flexion increased his sx the most. Physical Therapy Plan Next Visit Focus/Plan Next Note Type Treatment Note Next Visit Plan advance habituation exercises
--- NOTE | 2020-02-19 11:16 | PT.OTN ---
Current Diagnoses Tinnitus, bilateral (02/19/20) Nausea (02/19/20) Dizziness and giddiness (02/19/20) Motion sickness, initial encounter (02/19/20) Physical Therapy Treatment Note PT-OP-A Visit Information Start: 01/24/20 08:44 Freq: Status: Active Protocol: Document 02/19/20 10:34 DCW (Rec: 02/19/20 11:16 DCW [id number]) Out-Patient Physical Therapy Visit Information Visit Information Visit Type Treatment Note Visit Start Time 10:34 Visit Stop Time 11:15 Total Visit Minutes 41 Visit Number 09/12 Number of TRANSCRIPTION TYPIST Visits 0 Evaluation Information Evaluation Date 01/23/20 PT-OP-B Current Condition Start: 01/24/20 08:44 Freq: Status: Active Protocol: Document 01/23/20 12:00 DLM (Rec: 01/24/20 09:19 DLM [email or web address]) Current Condition History of Current Condition Onset Date 5 years ago Current Complaints nausea, sense of motion sickness with positions and movements History of Current Condition Sudden development of nausea with specific motions such as looking up under a sink. He has been avoiding motions and positions that cause his symptoms. He sleeps on two pillows to keep head elevated. He has noticed a recent increase in his symptoms without known cause. If he does a very provoking activity his nausea can last the rest of the day. Less provoking motions will cause short term nausea. Other provoking positions/motions are; sleeping flat, head down when in quadruped, sudden head motions. Prior Treatments and Tests ENT assessment which was negative for BPPV, referred to physical therapy for habituation Treatment Goals Patient/Caregiver Goals He wants to be able to do rolls in his kayak, to remove limits to my activities Prior Functional Status Baseline Function- ADL's Independent Baseline Function- Mobility Independent Baseline Function- Gait Independent without device Baseline Function- Recreation/Hobbies active hiking and kayaking Baseline Function- Other hearing aides Current Functional Impairments (Reported) Functional Limitations- ADL's avoids looking under sink/bed, sleeps with head elevated Functional Limitations- Mobility/Gait Independent gait without assistive device, no change in his balance Functional Limitations- Recreation/ avoiding learning kayak rolls Hobbies due to his symptoms Functional Limitations- Other high frequency hearing loss, tinnitus bilateral ears, sometimes food sticks in esophagus, headaches when his symptoms are provoked Personal Factors Other Personal Factors That May Effect pt is very active, prior Therapy/Recovery injury to left achilles with ongoing soreness PT-OP-C Subjective Start: 01/24/20 08:44 Freq: Status: Active Protocol: Document 02/19/20 10:34 DCW (Rec: 02/19/20 11:16 DCW [id number]) OP-PT Subjective Patient Comments Patient Comments Pt overall feeling better. Child's pose still gives him some discomfort, but other activities have been much easier. PT-OP-D Balance Start: 01/24/20 08:44 Freq: Status: Active Protocol: Document 01/23/20 12:00 DLM (Rec: 01/26/20 12:47 DLM [email or web address]) Balance Tests CTSIB CTSIB Position 1 > 30 sec CTSIB Position 2 >30 sec CTSIB Position 3 >30 sec CTSIB Position 4 >30 sec CTSIB Position 5 >30 sec CTSIB Position 6 >30 sec Romberg Romberg independent with EO and EC Single Limb Standing Single Limb- Right > 10 sec Single Limb- Left >10 sec Tandem Tandem Standing independent > 30 sec PT-OP-H Neuro Start: 01/24/20 08:44 Freq: Status: Active Protocol: Document 01/23/20 12:00 DLM (Rec: 01/26/20 13:05 DLM [email or web address]) Sensation Evaluation Gross Sensation Gross Sensation Right LE Impaired Sensation Description Numbness Comments Summary Comments pt reports numbness in plantar right forefoot associated with neuropathy Coordination Evaluation Comments Coordination Comments UE and LE Coordination is WNL PT-OP-K Range of Motion Start: 01/24/20 08:44 Freq: Status: Active Protocol: Document 01/23/20 12:00 DLM (Rec: 01/26/20 12:48 DLM [email or web address]) Cervical Spine Range of Motion Cervical Spine Active Percentage Testing Position Sitting Flexion 95 Extension 50 Rotation Left 50 Rotation Right 75 Lateral Flexion Left 25 Lateral Flexion Right 25 ROM Limitations Soft Tissue Tightness PT-OP-M Strength Start: 01/24/20 08:44 Freq: Status: Active Protocol: Document 01/23/20 12:00 DLM (Rec: 01/26/20 12:50 DLM [email or web address]) Hip Strength Hip Manual Muscle Testing Right Flexion (L2) 5 Normal Extension (S1) 5 Normal Abduction 5 Normal Adduction 5 Normal Left Flexion (L2) 5 Normal Extension (S1) 5 Normal Abduction 5 Normal Adduction 5 Normal Knee Strength Knee Manual Muscle Testing Right Flexion (S2) 5 Normal Extension (L3) 5 Normal Left Flexion (S2) 5 Normal Extension (L3) 5 Normal Ankle/Foot Strength Ankle and Foot Manual Muscle Testing Right Dorsiflexion (L4) 5 Normal Plantarflexion (S1) 5 Normal Inversion 5 Normal Eversion (S1) 5 Normal Left Dorsiflexion (L4) 5 Normal Plantarflexion (S1) 4 Good Inversion 5 Normal Eversion (S1) 4 Good PT-OP-O Vestibular Start: 01/24/20 08:44 Freq: Status: Active Protocol: Document 01/23/20 12:00 DLM (Rec: 01/26/20 13:03 DLM [email or web address]) Vestibular Assessment Screening Tests Vestibular Artery Screen Negative Positional Testing Rolling Test Negative Left,Negative Right Sidelying Test Negative Left,Negative Right Supine to Sit Negative Sit to Supine Negative Vestibular Function Tests Fukuda Test negative Comments Vestibular Comments Nausea with movements but no nystagmus nor dizziness. Symptoms less severe with eyes open than eyes closed. Provoking Motions: 1)Sit to/from right sidelying, constant nausea in sidelying, resolves in sitting. 2)Sit to/from left sidelying, constant nausea in sidelying, resolves in sitting. 3)Rolling- mild nause bilaterally w/left worse than right. 4) Seated bend over and up- mild nausea that resolves with bent over and reoccurs with up motion. 5) Seated cervical extension causes nausea that resolves when in neutral 6) Seated cervical flexion causes nausea that is worse than extension PT-OP-Q Treatments Start: 01/24/20 08:44 Freq: Status: Active Protocol: Document 02/19/20 10:34 DCW (Rec: 02/19/20 11:16 DCW [id number]) Gym Equipment Shuttle Balance 1 Details RED Comments WBOS: EO/EC, Horiz/Vert Head turns Staggered Stance Therapeutic Exercises Other Exercises 2 Other Exercise Name shaun pose Comments Dizziness increased to 3/10 Manual Therapy Treatment Soft Tissue Mobilization 1 Body Location Cervical paraspinals Mobilization Type Strumming,Sustained Pressure Manual Traction Cervical Body Position Hooklying Neuro Re-Education Treatment Other Activities 7 Details Ambulation with head turns Comments added diagonal head turns PT-OP-T Assessment and Plan Start: 01/24/20 08:44 Freq: Status: Active Protocol: Document 02/19/20 10:34 DCW (Rec: 02/19/20 11:16 DCW [id number]) Physical Therapy Assessment Goals Two Impairment Nausea with head motions Short Term Goal (STG) Cervical soft tissue tightness with not limit normal head motions STG Duration 4 weeks [facility] Goal (LTG) Resolve nausea with normal head motions LTG Duration 6 weeks One Impairment Nausea with positional changes Short Term Goal (STG) Resolve nausea with all bed mobility STG Duration 4 weeks Electronic Equipment Installer Goal (LTG) Resolve nause with all functional movements including looking under a sink LTG Duration 6 weeks Assessment Summary Assessment Pt tolerated treatment very well, still symptomatic with Child's pose, shows self- corrected LOB with vertical head turns during gait. Pt had noticeable improvement in cervical ROM following STM. Physical Therapy Plan Frequency and Duration Frequency of Treatment 2x/Week Duration of Treatment 6 weeks Plan of Care Start Date 01/23/20 Plan of Care End Date 03/05/20 Next Visit Focus/Plan Next Note Type Treatment Note Next Visit Plan advance habituation exercises
--- NOTE | 2020-02-23 09:55 | PT.OTN ---
Current Diagnoses Tinnitus, bilateral (02/23/20) Nausea (02/23/20) Dizziness and giddiness (02/23/20) Motion sickness, initial encounter (02/23/20) Physical Therapy Treatment Note PT-OP-A Visit Information Start: 01/24/20 08:44 Freq: Status: Active Protocol: Document 02/23/20 09:00 DCW (Rec: 02/23/20 09:55 DCW [id number]) Out-Patient Physical Therapy Visit Information Visit Information Visit Type Treatment Note Visit Start Time 09:00 Visit Stop Time 09:45 Total Visit Minutes 45 Visit Number 10/12 Number of ANTI TANK MISSILEMAN Visits 0 Evaluation Information Evaluation Date 01/23/20 PT-OP-B Current Condition Start: 01/24/20 08:44 Freq: Status: Active Protocol: Document 01/23/20 12:00 DLM (Rec: 01/24/20 09:19 DLM [email or web address]) Current Condition History of Current Condition Onset Date 5 years ago Current Complaints nausea, sense of motion sickness with positions and movements History of Current Condition Sudden development of nausea with specific motions such as looking up under a sink. He has been avoiding motions and positions that cause his symptoms. He sleeps on two pillows to keep head elevated. He has noticed a recent increase in his symptoms without known cause. If he does a very provoking activity his nausea can last the rest of the day. Less provoking motions will cause short term nausea. Other provoking positions/motions are; sleeping flat, head down when in quadruped, sudden head motions. Prior Treatments and Tests ENT assessment which was negative for BPPV, referred to physical therapy for habituation Treatment Goals Patient/Caregiver Goals He wants to be able to do rolls in his kayak, to remove limits to my activities Prior Functional Status Baseline Function- ADL's Independent Baseline Function- Mobility Independent Baseline Function- Gait Independent without device Baseline Function- Recreation/Hobbies active hiking and kayaking Baseline Function- Other hearing aides Current Functional Impairments (Reported) Functional Limitations- ADL's avoids looking under sink/bed, sleeps with head elevated Functional Limitations- Mobility/Gait Independent gait without assistive device, no change in his balance Functional Limitations- Recreation/ avoiding learning kayak rolls Hobbies due to his symptoms Functional Limitations- Other high frequency hearing loss, tinnitus bilateral ears, sometimes food sticks in esophagus, headaches when his symptoms are provoked Personal Factors Other Personal Factors That May Effect pt is very active, prior Therapy/Recovery injury to left achilles with ongoing soreness PT-OP-C Subjective Start: 01/24/20 08:44 Freq: Status: Active Protocol: Document 02/23/20 09:00 DCW (Rec: 02/23/20 09:55 DCW [id number]) OP-PT Subjective Patient Comments Patient Comments I've been doing a lot of walking and head bobbing since I was here last. PT-OP-D Balance Start: 01/24/20 08:44 Freq: Status: Active Protocol: Document 01/23/20 12:00 DLM (Rec: 01/26/20 12:47 DLM [email or web address]) Balance Tests CTSIB CTSIB Position 1 > 30 sec CTSIB Position 2 >30 sec CTSIB Position 3 >30 sec CTSIB Position 4 >30 sec CTSIB Position 5 >30 sec CTSIB Position 6 >30 sec Romberg Romberg independent with EO and EC Single Limb Standing Single Limb- Right > 10 sec Single Limb- Left >10 sec Tandem Tandem Standing independent > 30 sec PT-OP-H Neuro Start: 01/24/20 08:44 Freq: Status: Active Protocol: Document 01/23/20 12:00 DLM (Rec: 01/26/20 13:05 DLM [email or web address]) Sensation Evaluation Gross Sensation Gross Sensation Right LE Impaired Sensation Description Numbness Comments Summary Comments pt reports numbness in plantar right forefoot associated with neuropathy Coordination Evaluation Comments Coordination Comments UE and LE Coordination is WNL PT-OP-K Range of Motion Start: 01/24/20 08:44 Freq: Status: Active Protocol: Document 01/23/20 12:00 DLM (Rec: 01/26/20 12:48 DLM [email or web address]) Cervical Spine Range of Motion Cervical Spine Active Percentage Testing Position Sitting Flexion 95 Extension 50 Rotation Left 50 Rotation Right 75 Lateral Flexion Left 25 Lateral Flexion Right 25 ROM Limitations Soft Tissue Tightness PT-OP-M Strength Start: 01/24/20 08:44 Freq: Status: Active Protocol: Document 01/23/20 12:00 DLM (Rec: 01/26/20 12:50 DLM [email or web address]) Hip Strength Hip Manual Muscle Testing Right Flexion (L2) 5 Normal Extension (S1) 5 Normal Abduction 5 Normal Adduction 5 Normal Left Flexion (L2) 5 Normal Extension (S1) 5 Normal Abduction 5 Normal Adduction 5 Normal Knee Strength Knee Manual Muscle Testing Right Flexion (S2) 5 Normal Extension (L3) 5 Normal Left Flexion (S2) 5 Normal Extension (L3) 5 Normal Ankle/Foot Strength Ankle and Foot Manual Muscle Testing Right Dorsiflexion (L4) 5 Normal Plantarflexion (S1) 5 Normal Inversion 5 Normal Eversion (S1) 5 Normal Left Dorsiflexion (L4) 5 Normal Plantarflexion (S1) 4 Good Inversion 5 Normal Eversion (S1) 4 Good PT-OP-O Vestibular Start: 01/24/20 08:44 Freq: Status: Active Protocol: Document 01/23/20 12:00 DLM (Rec: 01/26/20 13:03 DLM [email or web address]) Vestibular Assessment Screening Tests Vestibular Artery Screen Negative Positional Testing Rolling Test Negative Left,Negative Right Sidelying Test Negative Left,Negative Right Supine to Sit Negative Sit to Supine Negative Vestibular Function Tests Fukuda Test negative Comments Vestibular Comments Nausea with movements but no nystagmus nor dizziness. Symptoms less severe with eyes open than eyes closed. Provoking Motions: 1)Sit to/from right sidelying, constant nausea in sidelying, resolves in sitting. 2)Sit to/from left sidelying, constant nausea in sidelying, resolves in sitting. 3)Rolling- mild nause bilaterally w/left worse than right. 4) Seated bend over and up- mild nausea that resolves with bent over and reoccurs with up motion. 5) Seated cervical extension causes nausea that resolves when in neutral 6) Seated cervical flexion causes nausea that is worse than extension PT-OP-Q Treatments Start: 01/24/20 08:44 Freq: Status: Active Protocol: Document 02/23/20 09:00 DCW (Rec: 02/23/20 09:55 DCW [id number]) Gym Equipment Shuttle Balance 1 Details RED Comments WBOS: EO/EC, Horiz/Vert Head turns Staggered Stance Neuro Re-Education Treatment Other Activities 2 Details Seated fwd flexion with rapid return Comments Symptoms 10 1 Details Standing fwd flexion /c looking under table Comments Symptoms 4/ Canalithic Repositioning BPPV Treatment Other Affected Canal(s) Deep Head Hang Comments Head hang symptoms =5 Neck flexion symptoms =8 PT-OP-T Assessment and Plan Start: 01/24/20 08:44 Freq: Status: Active Protocol: Document 02/23/20 09:00 DCW (Rec: 02/23/20 09:55 DCW [id number]) Physical Therapy Assessment Goals Two Impairment Nausea with head motions Short Term Goal (STG) Cervical soft tissue tightness with not limit normal head motions STG Duration 4 weeks Halfway Goal (LTG) Resolve nausea with normal head motions LTG Duration 6 weeks One Impairment Nausea with positional changes Short Term Goal (STG) Resolve nausea with all bed mobility STG Duration 4 weeks Clinical Mental Health Counselor Goal (LTG) Resolve nausea with all functional movements including looking under a sink LTG Duration 6 weeks Assessment Summary Assessment Pt very symptomatic with deep head hang maneuver, although did not display any visible symptoms, even with fixation removed. Therapist recommended pt continue to perform repeated activities that increase his complaints, although avoid the head hang for now, as that is too provocative for his symptoms at this time. Physical Therapy Plan Frequency and Duration Frequency of Treatment 2x/Week Duration of Treatment 6 weeks Plan of Care Start Date 01/23/20 Plan of Care End Date 03/05/20 Next Visit Focus/Plan Next Note Type Treatment Note Next Visit Plan advance habituation exercises
--- NOTE | 2020-02-27 15:18 | PT.OTN ---
Current Diagnoses Tinnitus, bilateral (02/27/20) Nausea (02/27/20) Dizziness and giddiness (02/27/20) Motion sickness, initial encounter (02/27/20) Physical Therapy Treatment Note PT-OP-A Visit Information Start: 01/24/20 08:44 Freq: Status: Active Protocol: Document 02/27/20 14:30 DCW (Rec: 02/27/20 15:18 DCW [id number]) Out-Patient Physical Therapy Visit Information Visit Information Visit Type Treatment Note Visit Start Time 14:30 Visit Stop Time 15:15 Total Visit Minutes 45 Visit Number 11/12 Number of ELECTRIC APPLIANCE INSTALLER Visits 0 Evaluation Information Evaluation Date 01/23/20 PT-OP-B Current Condition Start: 01/24/20 08:44 Freq: Status: Active Protocol: Document 01/23/20 12:00 DLM (Rec: 01/24/20 09:19 DLM [email or web address]) Current Condition History of Current Condition Onset Date 5 years ago Current Complaints nausea, sense of motion sickness with positions and movements History of Current Condition Sudden development of nausea with specific motions such as looking up under a sink. He has been avoiding motions and positions that cause his symptoms. He sleeps on two pillows to keep head elevated. He has noticed a recent increase in his symptoms without known cause. If he does a very provoking activity his nausea can last the rest of the day. Less provoking motions will cause short term nausea. Other provoking positions/motions are; sleeping flat, head down when in quadruped, sudden head motions. Prior Treatments and Tests ENT assessment which was negative for BPPV, referred to physical therapy for habituation Treatment Goals Patient/Caregiver Goals He wants to be able to do rolls in his kayak, to remove limits to my activities Prior Functional Status Baseline Function- ADL's Independent Baseline Function- Mobility Independent Baseline Function- Gait Independent without device Baseline Function- Recreation/Hobbies active hiking and kayaking Baseline Function- Other hearing aides Current Functional Impairments (Reported) Functional Limitations- ADL's avoids looking under sink/bed, sleeps with head elevated Functional Limitations- Mobility/Gait Independent gait without assistive device, no change in his balance Functional Limitations- Recreation/ avoiding learning kayak rolls Hobbies due to his symptoms Functional Limitations- Other high frequency hearing loss, tinnitus bilateral ears, sometimes food sticks in esophagus, headaches when his symptoms are provoked Personal Factors Other Personal Factors That May Effect pt is very active, prior Therapy/Recovery injury to left achilles with ongoing soreness PT-OP-C Subjective Start: 01/24/20 08:44 Freq: Status: Active Protocol: Document 02/27/20 14:30 DCW (Rec: 02/27/20 15:18 DCW [id number]) OP-PT Subjective Patient Comments Patient Comments Pt reports that the head hang with the Frenzel lenses was the worst I've felt, 10/10, and had trouble the rest of the day and into the next day. PT-OP-D Balance Start: 01/24/20 08:44 Freq: Status: Active Protocol: Document 01/23/20 12:00 DLM (Rec: 01/26/20 12:47 DLM [email or web address]) Balance Tests CTSIB CTSIB Position 1 > 30 sec CTSIB Position 2 >30 sec CTSIB Position 3 >30 sec CTSIB Position 4 >30 sec CTSIB Position 5 >30 sec CTSIB Position 6 >30 sec Romberg Romberg independent with EO and EC Single Limb Standing Single Limb- Right > 10 sec Single Limb- Left >10 sec Tandem Tandem Standing independent > 30 sec PT-OP-H Neuro Start: 01/24/20 08:44 Freq: Status: Active Protocol: Document 01/23/20 12:00 DLM (Rec: 01/26/20 13:05 DLM [email or web address]) Sensation Evaluation Gross Sensation Gross Sensation Right LE Impaired Sensation Description Numbness Comments Summary Comments pt reports numbness in plantar right forefoot associated with neuropathy Coordination Evaluation Comments Coordination Comments UE and LE Coordination is WNL PT-OP-K Range of Motion Start: 01/24/20 08:44 Freq: Status: Active Protocol: Document 01/23/20 12:00 DLM (Rec: 01/26/20 12:48 DLM [email or web address]) Cervical Spine Range of Motion Cervical Spine Active Percentage Testing Position Sitting Flexion 95 Extension 50 Rotation Left 50 Rotation Right 75 Lateral Flexion Left 25 Lateral Flexion Right 25 ROM Limitations Soft Tissue Tightness PT-OP-M Strength Start: 01/24/20 08:44 Freq: Status: Active Protocol: Document 01/23/20 12:00 DLM (Rec: 01/26/20 12:50 DLM [email or web address]) Hip Strength Hip Manual Muscle Testing Right Flexion (L2) 5 Normal Extension (S1) 5 Normal Abduction 5 Normal Adduction 5 Normal Left Flexion (L2) 5 Normal Extension (S1) 5 Normal Abduction 5 Normal Adduction 5 Normal Knee Strength Knee Manual Muscle Testing Right Flexion (S2) 5 Normal Extension (L3) 5 Normal Left Flexion (S2) 5 Normal Extension (L3) 5 Normal Ankle/Foot Strength Ankle and Foot Manual Muscle Testing Right Dorsiflexion (L4) 5 Normal Plantarflexion (S1) 5 Normal Inversion 5 Normal Eversion (S1) 5 Normal Left Dorsiflexion (L4) 5 Normal Plantarflexion (S1) 4 Good Inversion 5 Normal Eversion (S1) 4 Good PT-OP-O Vestibular Start: 01/24/20 08:44 Freq: Status: Active Protocol: Document 01/23/20 12:00 DLM (Rec: 01/26/20 13:03 DLM [email or web address]) Vestibular Assessment Screening Tests Vestibular Artery Screen Negative Positional Testing Rolling Test Negative Left,Negative Right Sidelying Test Negative Left,Negative Right Supine to Sit Negative Sit to Supine Negative Vestibular Function Tests Fukuda Test negative Comments Vestibular Comments Nausea with movements but no nystagmus nor dizziness. Symptoms less severe with eyes open than eyes closed. Provoking Motions: 1)Sit to/from right sidelying, constant nausea in sidelying, resolves in sitting. 2)Sit to/from left sidelying, constant nausea in sidelying, resolves in sitting. 3)Rolling- mild nause bilaterally w/left worse than right. 4) Seated bend over and up- mild nausea that resolves with bent over and reoccurs with up motion. 5) Seated cervical extension causes nausea that resolves when in neutral 6) Seated cervical flexion causes nausea that is worse than extension PT-OP-Q Treatments Start: 01/24/20 08:44 Freq: Status: Active Protocol: Document 02/27/20 14:30 DCW (Rec: 02/27/20 15:18 DCW [id number]) Manual Therapy Treatment Other Other Manual Treatments Positional testing Canalithic Repositioning BPPV Treatment Eugenie Affected Canal(s) R Posterior, L Posterior Reps x2 Comments Modified Eugenie PT-OP-T Assessment and Plan Start: 01/24/20 08:44 Freq: Status: Active Protocol: Document 02/27/20 14:30 DCW (Rec: 02/27/20 15:18 DCW [id number]) Physical Therapy Assessment Goals Two Impairment Nausea with head motions Short Term Goal (STG) Cervical soft tissue tightness with not limit normal head motions STG Duration 4 weeks Wellness Instructor Goal (LTG) Resolve nause with normal head motions LTG Duration 6 weeks One Impairment Nausea with positional changes Short Term Goal (STG) Resolve nause with all bed mobility STG Duration 4 weeks Wellness Instructor Goal (LTG) Resolve nause with all functional movements including looking under a sink LTG Duration 6 weeks Assessment Summary Assessment Pt requested CRM today, although neither ENT or PT has found any symptoms consistent with BPPV. No noticeable change following Eugenie on either side. Pt was given BDEs to hopefully help with habituation. Take orthostatics next week. Physical Therapy Plan Frequency and Duration Frequency of Treatment 2x/Week Duration of Treatment 6 weeks Plan of Care Start Date 01/23/20 Plan of Care End Date 03/05/20 Next Visit Focus/Plan Next Note Type Treatment Note Next Visit Plan advance habituation exercises
--- NOTE | 2020-04-12 11:16 | PT.OTN ---
Current Diagnoses Tinnitus, bilateral (04/12/20) Nausea (04/12/20) Dizziness and giddiness (04/12/20) Motion sickness, initial encounter (04/12/20) Physical Therapy Treatment Note PT-OP-A Visit Information Start: 01/24/20 08:44 Freq: Status: Active Protocol: Document 04/12/20 10:30 DCW (Rec: 04/12/20 11:16 DCW [id number]) Out-Patient Physical Therapy Visit Information Visit Information Visit Type Discharge Summary Visit Start Time 10:30 Visit Stop Time 11:05 Total Visit Minutes 35 Visit Number / Number of TRUCK MECHANIC APPRENTICE Visits 0 Evaluation Information Evaluation Date 01/23/20 PT-OP-B Current Condition Start: 01/24/20 08:44 Freq: Status: Active Protocol: Document 01/23/20 12:00 DLM (Rec: 01/24/20 09:19 DLM [id number]) Current Condition History of Current Condition Onset Date 5 years ago Current Complaints nausea, sense of motion sickness with positions and movements History of Current Condition Sudden development of nausea with specific motions such as looking up under a sink. He has been avoiding motions and positions that cause his symptoms. He sleeps on two pillows to keep head elevated. He has noticed a recent increase in his symptoms without known cause. If he does a very provoking activity his nausea can last the rest of the day. Less provoking motions will cause short term nausea. Other provoking positions/motions are; sleeping flat, head down when in quadruped, sudden head motions. Prior Treatments and Tests ENT assessment which was negative for BPPV, referred to physical therapy for habituation Treatment Goals Patient/Caregiver Goals He wants to be able to do rolls in his kayak, to remove limits to my activities Prior Functional Status Baseline Function- ADL's Independent Baseline Function- Mobility Independent Baseline Function- Gait Independent without device Baseline Function- Recreation/Hobbies active hiking and kayaking Baseline Function- Other hearing aides Current Functional Impairments (Reported) Functional Limitations- ADL's avoids looking under sink/bed, sleeps with head elevated Functional Limitations- Mobility/Gait Independent gait without assistive device, no change in his balance Functional Limitations- Recreation/ avoiding learning kayak rolls Hobbies due to his symptoms Functional Limitations- Other high frequency hearing loss, tinnitus bilateral ears, sometimes food sticks in esophagus, headaches when his symptoms are provoked Personal Factors Other Personal Factors That May Effect pt is very active, prior Therapy/Recovery injury to left achilles with ongoing soreness PT-OP-C Subjective Start: 01/24/20 08:44 Freq: Status: Active Protocol: Document 04/12/20 10:30 DCW (Rec: 04/12/20 10:39 DCW [id number]) OP-PT Subjective Patient Comments Patient Comments I don't think the exercises are really getting me to where I need to be. I get desensitized when I'm doing the exercises, but if I stop them, it just comes right back . Patient Reported Progress Same PT-OP-D Balance Start: 01/24/20 08:44 Freq: Status: Active Protocol: Document 01/23/20 12:00 DLM (Rec: 01/26/20 12:47 DLM [id number]) Balance Tests CTSIB CTSIB Position 1 > 30 sec CTSIB Position 2 >30 sec CTSIB Position 3 >30 sec CTSIB Position 4 >30 sec CTSIB Position 5 >30 sec CTSIB Position 6 >30 sec Romberg Romberg independent with EO and EC Single Limb Standing Single Limb- Right > 10 sec Single Limb- Left >10 sec Tandem Tandem Standing independent > 30 sec PT-OP-H Neuro Start: 01/24/20 08:44 Freq: Status: Active Protocol: Document 01/23/20 12:00 DLM (Rec: 01/26/20 13:05 DLM [email or web address]) Sensation Evaluation Gross Sensation Gross Sensation Right LE Impaired Sensation Description Numbness Comments Summary Comments pt reports numbness in plantar right forefoot associated with neuropathy Coordination Evaluation Comments Coordination Comments UE and LE Coordination is WNL PT-OP-K Range of Motion Start: 01/24/20 08:44 Freq: Status: Active Protocol: Document 04/12/20 10:30 DCW (Rec: 04/12/20 10:42 DCW [id number]) Cervical Spine Range of Motion Cervical Spine Active Percentage Testing Position Sitting Flexion 95 Extension 55 Rotation Left 78 Rotation Right 80 Lateral Flexion Left 30 Lateral Flexion Right 35 ROM Limitations Soft Tissue Tightness PT-OP-M Strength Start: 01/24/20 08:44 Freq: Status: Active Protocol: Document 01/23/20 12:00 DLM (Rec: 01/26/20 12:50 DLM [email or web address]) Hip Strength Hip Manual Muscle Testing Right Flexion (L2) 5 Normal Extension (S1) 5 Normal Abduction 5 Normal Adduction 5 Normal Left Flexion (L2) 5 Normal Extension (S1) 5 Normal Abduction 5 Normal Adduction 5 Normal Knee Strength Knee Manual Muscle Testing Right Flexion (S2) 5 Normal Extension (L3) 5 Normal Left Flexion (S2) 5 Normal Extension (L3) 5 Normal Ankle/Foot Strength Ankle and Foot Manual Muscle Testing Right Dorsiflexion (L4) 5 Normal Plantarflexion (S1) 5 Normal Inversion 5 Normal Eversion (S1) 5 Normal Left Dorsiflexion (L4) 5 Normal Plantarflexion (S1) 4 Good Inversion 5 Normal Eversion (S1) 4 Good PT-OP-O Vestibular Start: 01/24/20 08:44 Freq: Status: Active Protocol: Document 04/12/20 10:30 DCW (Rec: 04/12/20 10:51 DCW [id number]) Vestibular Assessment Positional Testing Rolling Test Negative Left,Negative Right Sidelying Test Negative Left,Negative Right Supine to Sit Negative Sit to Supine Negative Comments Vestibular Comments Mild nausea occasionally with some of the movements, ~1/2 of the times he went supine->sit . PT-OP-Q Treatments Start: 01/24/20 08:44 Freq: Status: Active Protocol: Document 04/12/20 10:30 DCW (Rec: 04/12/20 11:16 DCW [id number]) Manual Therapy Treatment Other Other Manual Treatments Positional testing Canalithic Repositioning BPPV Treatment Eugenie Affected Canal(s) L Posterior Reps x1 Comments Modified Eugenie PT-OP-T Assessment and Plan Start: 01/24/20 08:44 Freq: Status: Active Protocol: Document 04/12/20 10:30 DCW (Rec: 04/12/20 11:16 DCW [id number]) Physical Therapy Assessment Goals Two Impairment Nausea with head motions Short Term Goal (STG) Cervical soft tissue tightness with not limit normal head motions STG Duration Met Cable Hooker Goal (LTG) Resolve nause with normal head motions LTG Duration 6 weeks One Impairment Nausea with positional changes Short Term Goal (STG) Resolve nause with all bed mobility STG Duration 4 weeks Skilled Nursing Goal (LTG) Resolve nause with all functional movements including looking under a sink LTG Duration 6 weeks Assessment Summary Assessment Pt's cervical ROM has improved to relatively WNL, but his symptoms of nausea have remained unchanged. Patient and therapist feel like his best bet is to return to referring ENT, to determine next step. Pt may benefit from VNG, if available. Physical Therapy Plan Frequency and Duration Frequency of Treatment 1x/Week Duration of Treatment 1 day Plan of Care Start Date 04/12/20 Plan of Care End Date 04/13/20 Discharge Physical Therapy Discharge Reasons Plateau in Progress Next Visit Focus/Plan Next Note Type Discharge Summary
--- NOTE | 2020-04-12 11:16 | PT.OPPOC ---
Physical, Occupational & Speech Therapy At [facility] Current Diagnoses Tinnitus, bilateral (04/12/20) Nausea (04/12/20) Dizziness and giddiness (04/12/20) Motion sickness, initial encounter (04/12/20) Visit Care Team Role Provider Type John Fortune DO Primary Care Provider Non-Staff Specialty: Family Practice Address: [address] [place], [address] Email: Ramin Bhatt MD Attending Provider Physician Referring Provider Specialty: Ear, Nose, Throat Address: [address] [place] [address], [id number] Email: [email or web address] Plan Of Care PT-OP-T Assessment and Plan Start: 01/24/20 08:44 Freq: Status: Active Protocol: Document 04/12/20 10:30 DCW (Rec: 04/12/20 11:16 DCW [id number]) Physical Therapy Assessment Goals Two Impairment Nausea with head motions Short Term Goal (STG) Cervical soft tissue tightness with not limit normal head motions STG Duration Met Longterm Goal (LTG) Resolve nause with normal head motions LTG Duration 6 weeks One Impairment Nausea with positional changes Short Term Goal (STG) Resolve nause with all bed mobility STG Duration 4 weeks Plate Preparer Goal (LTG) Resolve nause with all functional movements including looking under a sink LTG Duration 6 weeks Assessment Summary Assessment Pt's cervical ROM has improved to relatively WNL, but his symptoms of nausea have remained unchanged. Patient and therapist feel like his best bet is to return to referring ENT, to determine next step. Pt may benefit from VNG, if available. Physical Therapy Plan Frequency and Duration Frequency of Treatment 1x/Week Duration of Treatment 1 day Plan of Care Start Date 04/12/20 Plan of Care End Date 04/13/20 Discharge Physical Therapy Discharge Reasons Plateau in Progress Next Visit Focus/Plan Next Note Type Discharge Summary Plan of Care Dates Plan of Care Start Date 04/12/20 Plan of Care End Date 04/13/20 Electronically Signed by: Martin Grant, PT 04/12/20 1116 Please Sign and Return: I have reviewed this Plan of Care and certify that the skilled therapy services above are required to meet the patient?s needs. Physician Signature Date Printed Name and Credentials Clinical Instructor Signature Printed Name and Credentials
== END 2020-04-12 14:25 ==
LOC: PHYS 10:30
PROVIDERS: PCP Family Medicine; Referring Provider Otolaryngology; Visit Provider Otolaryngology
DX: R42 Dizziness and giddiness (principal); R11.0 Nausea; T75.3XXA Motion sickness, initial encounter; H93.13 Tinnitus, bilateral
CPT/HCPCS: 97110; 97112; 97140; 97162; 97535